=== PATIENT | female | born 2000 | race Two or more races ===

== ENCOUNTER 2019-10-31 19:03 | Inpatient (IN) | payer MEDICAID ==
[~2019-10-31] VITALS: Ht 162.6 cm; Wt 80.3 kg
[2019-10-31] MEDS ORDERED: LIDOCAINE 1% PF 30 ML VIAL. INJ PRN (19:15)
[2019-10-31] MEDS ORDERED: ACETAMINOPHEN 325 MG TABLET. PO PRN (19:15)
[2019-10-31] MEDS ORDERED: 0.9 % SODIUM CHLORIDE 10 ML DISP.SYRIN. IV PRN (19:15)
[2019-10-31] MEDS ORDERED: BUTORPHANOL 2 MG/ML VIAL. IVP PRN (19:15)
[2019-10-31] MEDS ORDERED: fentaNYL PF VIAL 100 MCG/2 ML VIAL IVP PRN ×3 (19:15)
[2019-10-31] MEDS ORDERED: OXYTOCIN 30 UNIT/500 ML PREMIX 500 ML IV PRN (19:15)
[2019-10-31] MEDS ORDERED: TERBUTALINE 1 MG/ML VIAL. SQ PRN (19:15)
[2019-10-31] MEDS ORDERED: IBUPROFEN 400 MG TABLET. PO PRN (19:15)
[2019-10-31] MEDS ORDERED: ONDANSETRON PF 4 MG/2 ML VIAL. IVP PRN (19:15)
[2019-10-31 19:42] LABS: BILIRUBIN,URINE NEGATIVE (NEG); CLARITY,URINE CLOUDY; COLOR,URINE YELLOW; NITRITE,URINE NEGATIVE (NEG); PH,URINE 7.5 (<5.0-8.0); PROTEIN,URINE NEGATIVE (NEG-TRACE); UROBILINOGEN,URINE 0.2 mg/dL (0.2 mg/dL)
[2019-10-31 19:48] VITALS: BP 122/67
[2019-10-31 19:48] LABS: SQUAMOUS EPITHELIAL CELL,UR MANY /LPF
[2019-10-31 19:49] LABS: AMORPHOUS SEDIMENT,UR PRESENT /HPF; BACTERIA,URINE FEW /HPF (0-FEW)
[2019-10-31] MEDS ORDERED: DINOPROSTONE 10 MG SUPP.VAG VG ONE (20:00)
[2019-10-31] MEDS: IV RINGERS,LACTATED 1000ML 1,000 ML IV SCH (20:03)
[2019-10-31 20:04] LABS: BASO # 0.1 x10^3/uL (0.0-0.2); BASO % 1 % (0-3); EOS # 0.2 x10^3/uL (0.0-0.7); EOS % 2 % (0-3); HEMOGLOBIN 9.5 g/dL (12.0-15.5); LYMPH # 1.9 x10^3/uL (1.0-4.8); LYMPH % 18 % (24-48); MEAN CORPUSCULAR HEMOGLOBIN 25 pg (25-35); MEAN CORPUSCULAR HGB CONC 33 g/dL (31-37); MEAN CORPUSCULAR VOLUME 78 fL (79-100); MONO # 1.1 x10^3/uL (0.0-1.1); MONO % 11 % (0-9); NEUT # 7.2 x10^3/uL (1.8-7.7); NEUT % 69 % (31-73); PLATELET COUNT 388 x10^3/uL (140-400); RED BLOOD COUNT 3.73 x10^6/uL (3.50-5.40); RED CELL DISTRIBUTION WIDTH 16.1 % (11.5-14.5); WHITE BLOOD COUNT 10.5 x10^3/uL (4.0-11.0)
[2019-10-31] MEDS ORDERED: diphenhydrAMINE HCL 25 MG CAPSULE PO PRN (22:45)
[2019-11-01] MEDS: OXYTOCIN 30 UNIT/500 ML PREMIX 500 ML IV PRN ×2 (06:18→18:05)
[2019-11-01] MEDS: IV RINGERS,LACTATED 1000ML 1,000 ML IV SCH (07:59)
[2019-11-01] MEDS ORDERED: L&D EPIDURAL SYRINGE 50 ML ONE ×3 (08:28→16:33)
[2019-11-01] MEDS ORDERED: ROPIVacaine 0.2% PF 10 ML VIAL. ONE ×2 (08:28→09:00)
[2019-11-01] MEDS ORDERED: L&D EPIDURAL 50 ML SYRINGE. ONE (09:00)
[2019-11-01] MEDS ORDERED: IV RINGERS,LACTATED 1000ML 1,000 ML IV SCH (09:14)
[2019-11-01] MEDS ORDERED: NALOXONE 0.4 MG/ML VIAL. IV PRN (09:15)
[2019-11-01] MEDS ORDERED: L&D EPIDURAL CASSETTE 100 ML EPID PRN (09:15)
[2019-11-01] MEDS ORDERED: ePHEDrine PF IN SALINE 50 MG/10 ML SYRINGE. IV PRN (09:15)
[2019-11-01] MEDS ORDERED: ROPIVacaine 0.2% PF 10 ML VIAL. EPID PRN (09:15)
--- NOTE | 2019-11-01 15:59 | PDOC1 ---
OB - History Hx of Present Care: Good Care Ultrasounds: Normal mid trimester US Obstetrical Complications: None Medical Complications: None Past Family/Social History * Past Medical, Surgical, Family and Obstetric Histories reviewed from chart. Rubella: Immune RPR/VDRL: Negative GBS Status: Negative HBsAG: Negative OB - Chief Complaint & HPI Date of Admission: Date of Admission: October 31, 2019 at 19:03 Chief Complaint/History : 1 Para: 0 EGA: 40 Reason for admission: induction of labor Indication for induction: post dates Admission Nurse Assessment Rev: Yes OB - Admission Exam Physical Exam Vitals: VS - Last 72 Hours, by Label Date Time Temp Pulse Resp B/P (MAP) Pulse Ox O2 Delivery O2 Flow Rate FiO2 11/01/19 12:43 18 Room Air 11/01/19 07:58 20 Room Air 10/31/19 19:48 97.6 107 18 122/67 (85) Room Air 97.6 HEENT: Normal Heart: Regular Rate Lungs: Clear Abdomen: Gravid, Non tender, Soft Extremities: Edema Reflexes: Normal Cervical Dilatation: 1cm Effacement: 50% Station: -3 Membranes: Intact Heart Rate: Normal Accelerations: Accelerations Present Decelerations: No decelerations Contractions on Admission: None Text A: 40 wks IUP IOL secondary post term P: Admit IOl cervidil, then pitocin. OSITO LYLES Jr, MD November 01, 2019 15:59
--- NOTE | 2019-11-01 17:05 | PDOC ---
VAGINAL DELIVERY DATE DATE: 11/01/19 TIME: 17:02 : 1 Para: 1 EGA: 40 VAGINAL DELIVERY: VTX VACCUM ASSISTED: No PLACENTA: Spontaneous 8/9 SEX: Female WEIGHT Weight [ 3460 gm] Nuchal Cord: No Amniotic Fluid: Thin Meconium PAIN: Epidural EPISIOTOMY: No EXTENSION: Yes (lucila. periurethral lacerations) REPAIRED WITH none EBL 300 ml COMPLICATIONS none CONDITION pt. stable Signs of Intrauterine Infectio: None Shoulder Dystocia: No OSITO LYLES Jr, MD November 01, 2019 17:05
[2019-11-01] MEDS ORDERED: ZOLPIDEM 5 MG TABLET. PO PRN (17:15)
[2019-11-01] MEDS ORDERED: ACETAMINOPHEN 325 MG TABLET. PO PRN (17:15)
[2019-11-01] MEDS ORDERED: MAG HYDROX/ALUMINUM HYD/SIMETH 30 ML ORAL.SUSP PO PRN (17:15)
[2019-11-01] MEDS ORDERED: SIMETHICONE 80 MG TAB.CHEW PO PRN (17:15)
[2019-11-01] MEDS ORDERED: diphenhydrAMINE HCL 25 MG CAPSULE PO PRN (17:15)
[2019-11-01] MEDS ORDERED: BENZOCAINE 20% TOPICAL AEROSOL SPRAY 57GM CAN. TP PRN (17:15)
[2019-11-01] MEDS ORDERED: 0.9 % SODIUM CHLORIDE 10 ML DISP.SYRIN. IV PRN (17:15)
[2019-11-01] MEDS ORDERED: OXYTOCIN 30 UNIT/500 ML PREMIX 500 ML IV PRN (17:15)
[2019-11-01] MEDS ORDERED: TDaP (Adacel) per PROTOCOL. MC PRN (17:15)
[2019-11-01] MEDS ORDERED: MMR per PROTOCOL. MC PRN (17:15)
[2019-11-01] MEDS ORDERED: HYDROCORTISONE 1% TOPICAL OINTMENT 30GM TUBE. TP PRN (17:15)
[2019-11-01] MEDS ORDERED: MAGNESIUM HYDROXIDE 2,400 MG/30 ML ORAL.SUSP. PO PRN (17:15)
[2019-11-01] MEDS ORDERED: PHENYLEPH/MINERAL OIL/PETROLAT RECTAL OINTMENT TUBE. RC PRN (17:15)
[2019-11-01] MEDS: IBUPROFEN 400 MG TABLET. PO PRN (19:02)
[2019-11-01 19:30] VITALS: BP 113/78
[2019-11-01 20:30] VITALS: BP 107/64
[2019-11-02 00:45] VITALS: BP 103/64
[2019-11-02] MEDS: oxyCODONE/APAP 5/325 1 TAB TABLET PO PRN ×3 (00:45→20:50)
[2019-11-02 04:30] VITALS: BP 80/46
[2019-11-02 05:50] LABS: BASO # 0.1 x10^3/uL (0.0-0.2); BASO % 1 % (0-3); EOS # 0.1 x10^3/uL (0.0-0.7); EOS % 1 % (0-3); HEMATOCRIT 23.5 % (36.0-47.0); HEMOGLOBIN 7.4 g/dL (12.0-15.5); LYMPH # 2.2 x10^3/uL (1.0-4.8); LYMPH % 12 % (24-48); MEAN CORPUSCULAR HEMOGLOBIN 24 pg (25-35); MEAN CORPUSCULAR HGB CONC 31 g/dL (31-37); MEAN CORPUSCULAR VOLUME 77 fL (79-100); MONO # 1.7 x10^3/uL (0.0-1.1); MONO % 9 % (0-9); NEUT # 14.6 x10^3/uL (1.8-7.7); NEUT % 78 % (31-73); PLATELET COUNT 335 x10^3/uL (140-400); RED BLOOD COUNT 3.04 x10^6/uL (3.50-5.40); RED CELL DISTRIBUTION WIDTH 16.3 % (11.5-14.5); WHITE BLOOD COUNT 18.8 x10^3/uL (4.0-11.0)
--- NOTE | 2019-11-02 08:09 | PDOC3 ---
OB DISCHARGE SUMMARY DATE OF ADMISSION: 10/31/19 DATE OF DISCHARGE: 11/02/19 REASON FOR ADMISSION: Induction of labor INTRAPARTUM PROCEDURES: Spontanous Vag Deliv DISCHARGE DIAGNOSIS: Term Delivered DISCHARGE INFORMATION: Activity (ad real), Diet (regular), Instructions (pelvic rest x 6 wks) HOSPITAL COURSE Term gestation delivered vaginally without complications. OSITO LYLES Jr, MD November 02, 2019 08:09
[2019-11-02] MEDS ORDERED: IBUP-1027 PO (08:10)
--- NOTE | 2019-11-02 08:11 | DISCH ---
DISCHARGE INSTRUCTIONS Condition on Discharge Condition on Discharge: Stable Activity After Discharge Activity Instructions for Disc: Activity as tolerated Lifting Instructions after Dis: No heavy lifting Driving Instructions after Dis: Do not drive today Diet after Discharge Diet after Discharge: Regular Contacting the [facility] after DC Call your doctor for: Concerns you may have Follow-Up Follow up with: Earl in 6 wks OSITO LYLES Jr, MD November 02, 2019 08:11
[2019-11-02] MEDS ORDERED: MULTIVITAMIN with MINERAL TABLET. PO SCH (09:00)
[2019-11-02 09:20] VITALS: BP 105/69
[2019-11-02] MEDS: DOCUSATE SODIUM 100 MG CAPSULE. PO PRN ×2 (09:26→17:15)
[2019-11-02] MEDS: FERROUS SULFATE 325 MG TABLET. PO SCH ×2 (09:26→17:15)
[2019-11-02] MEDS: IBUPROFEN 400 MG TABLET. PO PRN ×2 (09:27→17:14)
--- NOTE | 2019-11-02 13:14 | NUR ---
1 po percocet given
[2019-11-02 14:00] VITALS: BP 94/59
[2019-11-02 18:30] VITALS: BP 96/56
[2019-11-03] VITALS: BP 105/68
[2019-11-03] MEDS: IBUPROFEN 400 MG TABLET. PO PRN (00:57)
[2019-11-03] MEDS: oxyCODONE/APAP 5/325 1 TAB TABLET PO PRN (06:26)
[2019-11-03 06:29] VITALS: BP 91/49
[2019-11-03] MEDS: DOCUSATE SODIUM 100 MG CAPSULE. PO PRN (07:43)
[2019-11-03] MEDS: FERROUS SULFATE 325 MG TABLET. PO SCH (07:43)
[2019-11-03 11:54] VITALS: BP 103/71
--- NOTE | 2019-11-04 16:06 | PATHOLOGY ---
[facility] Accession Number: [id number] . 01 Material submitted: . placenta - PLACENTA AND CORD . 01 Clinical history: . ; marginal cord insertion; thin meconium fluid; Apgars 8, 8; gestational age 40.2 weeks . 02 Diagnosis: 483 gram term placenta of an estimated 40.2 weeks gestation with attached membranes and umbilical cord: - Acute chorionitis of placental membranes, focal. - Focal acute vasculitis of umbilical cord and chorionic plate. - Marginal insertion of umbilical cord. - Subamniotic pigmented macrophages consistent with meconium staining. - Recent placental infarct, small. - Intervillous thrombus, small, with focal entrapment and degenerative changes of adjacent chorionic villi. (JPM:[facility] 11/04/2019) [facility] 11/04/2019 1554 Local . 02 Electronically signed: . Julio César Dewitt MD, Pathologist NPI- [id number] . 01 Gross description: . The specimen is received in formalin, labeled "Paola Dolan, placenta". Received is a de placenta with attached membranes and umbilical cord with a trimmed placental weight of 483 g and measuring 16.1 x 15.2 x 3.1 cm in greatest dimensions. The membranes are pale hyman and translucent in appearance, and the site of membrane rupture is 2.8 cm from the placental margin. The surface is intact displaying a normal arborizing vascular pattern, focal fibrin deposition near the cord insertion site, as well as a predominantly detached amnion. The trivascular umbilical cord measures 42.3 cm in length by up to 1.9 cm in diameter and inserts near marginally, 1.3 cm from the closest placental margin. The umbilical cord is pale hyman to blue-green appearance with moderate to severe helical twisting. The maternal surface is intact and complete; a minimal amount of adherent blood coagulum is seen on the surface. Sectioning reveals red-brown cut surfaces displaying two orange-hyman lesion measuring 0.3 and 0.5 cm, which encompass less than 5% of the total placental volume. The specimen is submitted representatively as follows: . A1 proximal umbilical cord and surface vessels A2 umbilical cord and membrane roll A3-A4 insurance service representative sections of maternal surface, to include both lesions. ([facility]; 11/03/2019) QA/QAC 11/03/2019 1142 Local . 02 Pathologist provided ICD-10: O41.1230, O77.0, Z37.0, Z3A.40 . 02 CPT . 734374 Specimen Comment: A courtesy copy of this report has been sent to [phone] Specimen Comment: Report sent to Performed at: 01 [facility] [address] [facility] [address], [place] [id number] MD Manav Berg MD Phone: [phone] Performed at: 02 [facility] [address] [place], [place] [id number] MD Julio César Dewitt MD Phone: [phone]
== END 2019-11-03 12:43 | disposition home or self-care (01) | DRG 807 ==
LOC: 3 SO LND 19:03 → 3 NORTH 11-01 19:20
PROVIDERS: ADMIT Obstetrics & Gynecology; ATTEND Obstetrics & Gynecology
PROC: 10E0XZZ Delivery of Products of Conception, External Approach (ICD-10-PCS; principal; 2019-11-01)
PROC: 3E0R3BZ Introduction of Anesthetic Agent into Spinal Canal, Percutaneous Approach (ICD-10-PCS; 2019-11-01)
PROC: 00HU33Z Insertion of Infusion Device into Spinal Canal, Percutaneous Approach (ICD-10-PCS; 2019-11-01)
DX: O77.0 Labor and delivery complicated by meconium in amniotic fluid (principal); Z37.0 Single live birth; Z3A.40 40 weeks gestation of pregnancy; O71.82 Other specified trauma to perineum and vulva
CPT/HCPCS: 36415; 81001; 85025; 86592; 86850; 86900; 86901; 87086; 87340; J2405; J2590; J2795; J3010; J7120; G0378; Q0163